=== PATIENT | female | born 2000 | race Caucasian/White ===

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

== ENCOUNTER 2023-12-07 12:31 | Outpatient (CLI) | payer OTHER | END 2023-12-07 12:32 | disposition home or self-care (01) | LOC: SCSCT 12:31 | PROVIDERS: ATTEND Orthopaedic Surgery Orthopaedic Surgery of the Spine | DX: M41.9 Scoliosis, unspecified (principal); N20.0 Calculus of kidney; Z98.1 Arthrodesis status | CPT/HCPCS: 72128 ==